=== PATIENT | female | born 1950 | race Caucasian/White ===

== ENCOUNTER → 2016-12-13 | Outpatient (CLI) | payer MEDICARE ==
[~2016-12-13] MED LIST: ADULT LOW DOSE81 MG PO; CALCIUM600 MG PO; CLARITIN10 MG PO; CLOBETASOL PROP60 GM; ELIQUIS 5 MG TAB5 MG GT; FLOVENT 110.088 GM/I INH; ISOSORBIDE MONO30 MG PO; LEVAQUIN500 MG PO; LEVOTHYROXINE150 MCG PO; MULTAQ 400 MG400 MG PO; MULTIVITAMINS1 EAC1 PO; OMEPRAZOLE20 MG PO; PREMARIN VAG CR30 GM EXT; SIMVASTATIN20 MG PO; SINGULAIR10 MG PO; TYLENOL W/CODEIN1 E1 PO
== END ==
LOC: CT 12-07 14:30
DX: G89.4 Chronic pain syndrome (principal); M54.2 Cervicalgia; M54.5 Low back pain; M51.36 Other intervertebral disc degeneration, lumbar region; M48.07 Spinal stenosis, lumbosacral region; M47.812 Spondylosis without myelopathy or radiculopathy, cervical region; Z88.1 Allergy status to other antibiotic agents
CPT/HCPCS: 72125; 72131

== ENCOUNTER → 2017-02-26 | Outpatient (CLI) | payer MEDICARE | LOC: RAD 16:21 | DX: M54.9 Dorsalgia, unspecified (principal); S32.038A Other fracture of third lumbar vertebra, initial encounter for closed fracture | CPT/HCPCS: 72110 ==

== ENCOUNTER → 2020-12-29 | Outpatient (CLI) | payer MEDICARE | LOC: RAD 13:09 | DX: Z01.818 Encounter for other preprocedural examination (principal) | CPT/HCPCS: 71046 ==

== ENCOUNTER → 2021-05-31 | Outpatient (CLI) | payer MEDICARE | LOC: EXRD 09:52 | DX: M25.50 Pain in unspecified joint (principal); R76.8 Other specified abnormal immunological findings in serum; M79.672 Pain in left foot; M79.671 Pain in right foot | CPT/HCPCS: 73630 ==

== ENCOUNTER → 2022-04-26 | Outpatient (CLI) | payer MEDICARE | LOC: KOH-I 15:04 | DX: J32.2 Chronic ethmoidal sinusitis (principal) | CPT/HCPCS: 70486 ==